=== PATIENT | male | born 1955 | race Caucasian/White ===

== ENCOUNTER 2016-10-19 10:45 | Emergency (ER) | payer OTHER ==
[~2016-10-19] VITALS: Ht 167.6 cm; Wt 91.5 kg
[~2016-10-19 10:45] MED LIST: ATEN50TA PO; CEPH500C PO; ONDA-43 PO; PANT40TA3 PO; PARO10TA26 PO; TOLT4CAP PO; TRAM-40 PO
[2016-10-19 10:50] VITALS: Ht 167.6 cm; Wt 91.5 kg
== END 2016-10-19 12:40 | disposition left against medical advice (07) ==
LOC: E/R 10:45
DX: Z53.21 Procedure and treatment not carried out due to patient leaving prior to being seen by health care provider (principal)

== ENCOUNTER 2017-05-06 12:30 | Day surgery (SDC) | payer OTHER ==
[~2017-05-06] VITALS: Ht 170.2 cm; Wt 93.3 kg
[2017-05-06 14:04] VITALS: Ht 170.2 cm; Wt 93.3 kg
[2017-05-06] MEDS ORDERED: FAMOTIDINE (14:16)
[2017-05-06] MEDS ORDERED: SIMVASTATIN DAILY (14:16)
[2017-05-06] MEDS ORDERED: LOSARTAN 10 MG (14:16)
[2017-05-06 14:32] VITALS: BP 170/101; PULSE 109; RESP 22
[2017-05-06] MEDS ORDERED: PROPOFOL 60 ML ONE (14:38)
[2017-05-06] MEDS ORDERED: LIDOCAINE 100 MG SYRINGE ONE (14:38)
--- NOTE | 2017-05-06 15:07 | OPPN ---
Date/Time of Note Date/Time of Note DATE: 05/06/17 TIME: 15:06 Operative Report Preoperative Diagnosis Screening Postoperative Diagnosis Multiple small polyps Internal hemorrhoids Operation/Procedure Performed Colonoscopy and biopsy Surgeon see signature line surgical services assistant None Anesthesia: MAC Estimated blood loss: none Transfusion Required none Specimen Colon polyp biopsy Grafts/Implants none Complications none SCAR DUEÑAS MD May 06, 2017 15:07
[2017-05-06 15:30] VITALS: BP 133/84; RESP 20
--- NOTE | 2017-05-06 20:06 | GILP ---
DATE OF PROCEDURE: NAME OF PROCEDURES: Colonoscopy and biopsy. SURGEON: Scar Dueñas MD PREOPERATIVE DIAGNOSIS: Screening colonoscopy. POSTOPERATIVE DIAGNOSES 1. Colonoscopy all the way to the cecum. 2. Multiple small polyps were removed using the biopsy forceps. 3. Internal hemorrhoids. INDICATION FOR THE PROCEDURE: Mr. Josias Alegre is a 62-year-old male patient who was scheduled for s creening colonoscopy. The procedure and possible complications were well explained to the patient. The patient understood and consented to the procedure. DESCRIPTION OF PROCEDURE: Under the influence of anesthesia, the colonoscope was carefully introduc ed in the rectum. Under direct vision, it was advanced all the way to the cecum. FINDINGS: The patient had multiple small polyps, and they were removed using the biopsy forceps. H e had internal hemorrhoids. He tolerated the procedure very well. There was no complication from the procedure. At the end of the procedure, he was awake with stable vital signs, and he was discharged home to the care of his [facility] [place]. IMPRESSION: Please see postoperative diagnoses. PLAN: Next screening colonoscopy in 10 years. Dictated By: SCAR BORJAS/VASHTI Conf#: [id number] DID#: [id number] CC: SCAR DUEÑAS MD;*EndCC*
== END 2017-05-06 15:52 | disposition home or self-care (01) ==
LOC: GIL 12:30
PROVIDERS: ATTEND Internal Medicine Gastroenterology
DX: Z12.11 Encounter for screening for malignant neoplasm of colon (principal); K63.5 Polyp of colon; I10 Essential (primary) hypertension; J44.9 Chronic obstructive pulmonary disease, unspecified; K64.8 Other hemorrhoids
CPT/HCPCS: 88305; J2001

== ENCOUNTER 2018-10-13 11:33 | Day surgery (SDC) | payer OTHER ==
[~2018-10-13] VITALS: Ht 170.2 cm; Wt 94.0 kg
[~2018-10-13 11:33] MED LIST changes: -ATEN50TA PO; -CEPH500C PO; +FAMOTIDINE; +LOSARTAN 10 MG; -ONDA-43 PO; -PANT40TA3 PO; -PARO10TA26 PO; +SIMVASTATIN DAILY; -TOLT4CAP PO; -TRAM-40 PO
[2018-10-13 11:52] VITALS: Ht 170.2 cm; Wt 94.0 kg
[2018-10-13] MEDS ORDERED: atorvastatin (12:09)
[2018-10-13] MEDS ORDERED: paxil (12:09)
[2018-10-13] MEDS ORDERED: amlodipine (12:09)
[2018-10-13] MEDS ORDERED: aspirin (12:09)
--- NOTE | 2018-10-13 12:28 | PREAC ---
Date/Time of Note Date/Time of Note DATE: 10/13/18 TIME: 12:25 Anesthesia Eval and Record Evaluation Time Pre-Procedure Interview DATE: 10/13/18 TIME: 12:25 Age 63 Sex male NPO: 8 hrs Preoperative diagnosis Abdominal pain Planned procedure EGD Past Medical History Past Medical History: Includes Cardio: HTN, Dyslipidemia, CAD Pulm: Smoking Hx, COPD GI: Morbid obesity Surgery & Anesthesia Issues No known issue Meds Anticoagulation: Yes Beta Augustus within 24 hr: No Reason Beta Augustus not given: Pt. not on B-Augustus Reported Medications [aspirin] No Conflict Check 10/13/18 [atorvastatin] No Conflict Check 10/13/18 [paxil] No Conflict Check 10/13/18 [amlodipine] No Conflict Check 10/13/18 [Losartan 10MG Bid] No Conflict Check 05/06/17 Discontinued Reported Medications [Famotidine Prn] No Conflict Check 05/06/17 [Simvastatin Daily] No Conflict Check 05/06/17 Meds reviewed: Yes Allergies Coded Allergies: Sulfa (Sulfonamide Antibiotics) (Verified Allergy, Unknown, 05/06/17) tetanus toxoid, adsorbed (Verified Allergy, Unknown, 05/06/17) Allergies Reviewed: Yes Labs/Studies Labs Reviewed: Reviewed by anesthesiologist test: N/A Studies: ECG Pre-procedure Exam Last vitals BP:128/76, P:78, Spo2;100%, T:98,8 Airway: Adequate mouth opening, Adequate thyromental dist Mallampati: Mallampati III Teeth: Normal Lung: Normal Heart: Normal ASA Physical Status ASA physical status: 3 Emergency: None Planned Anesthetic General/MAC: MAC Planned Pain Management Parenteral pain med Pre-operative Attestations Prior to commencing anesthesia and surgery, the patient was re-evaluated, there was verification of: *The patient's identity *The results of appropriate recent lab work and preoperative vital signs *The above evaluation not changing prior to induction *Anesthetic plan, risk benefits, alternative and complications discussed with patient/family; questions answered; patient/family understands, accepts and wishes to proceed. DELIO RUSSO MD October 13, 2018 12:28
[2018-10-13 12:31] VITALS: BP 133/77; PULSE 80; RESP 15
[2018-10-13] MEDS ORDERED: LIDOCAINE 2% (SDV) 5 ML INJ ONE (12:31)
[2018-10-13] MEDS ORDERED: PROPOFOL 40 ML ONE (12:31)
--- NOTE | 2018-10-13 13:16 | PAC ---
Date/Time of Note Date/Time of Note DATE: 10/13/18 TIME: 13:16 Post-Anesthesia Notes Post-Anesthesia Note Last documented vital signs Vital Signs Date Temp Pulse Resp B/P (MAP) Pulse Ox O2 O2 Flow FiO2 Time Delivery Rate 10/13/18 98.5 80 15 133/77 98 Room Air 12:31 (95) Activity: WNL Respiratory function: WNL Cardiovascular function: WNL Mental status: Baseline Pain reasonably controlled: Yes Hydration appropriate: Yes Nausea/Vomiting absent: Yes Comments BP:112/56, P:78, Spo2:100%, T:98,8 DELIO RUSSO MD October 13, 2018 13:16
[2018-10-13 13:48] VITALS: BP 115/73; PULSE 70
== END 2018-10-13 14:21 | disposition home or self-care (01) ==
LOC: GIL 11:33
PROVIDERS: ATTEND Internal Medicine Gastroenterology
DX: K21.9 Gastro-esophageal reflux disease without esophagitis (principal); K29.50 Unspecified chronic gastritis without bleeding; B96.89 Other specified bacterial agents as the cause of diseases classified elsewhere; K44.9 Diaphragmatic hernia without obstruction or gangrene; E78.5 Hyperlipidemia, unspecified; I10 Essential (primary) hypertension
CPT/HCPCS: 43239; Z7610; 88305; 88312